=== PATIENT | male | born 1980 | race Caucasian/White ===

== ENCOUNTER 2016-09-28 14:49 | Emergency (ER) | payer OTHER ==
--- NOTE | 2016-09-28 15:51 | EDM.PDOC ---
ED HPI GENERAL MEDICAL PROBLEM - General Chief Complaint: Laceration Stated Complaint: CUT FINGER Time Seen by Provider: 09/28/16 15:10 Source of Information: Reports: Patient History Limitations: Reports: No Limitations - History of Present Illness INITIAL COMMENTS - FREE TEXT/NARRATIVE: Patient presents to the ED with complaints of an amputated finger. He was working on his [place] the [place] when he accidentally started the motor which caught his right index finger in the gears. He does not know his last tetanus. The finger is completely amputated at the distal tuft. Most oh his nail has also been removed. He has no other complaints. He did apply pressure and believes the rest of his finger tip is in the [place]. He does not have it with him. Onset: Today Onset Time: 14:30 Location: Reports: Upper Extremity, Right Quality: Reports: Ache, Sharp, Throbbing Severity: Moderate Improves with: Reports: Cold Therapy Worsens with: Reports: Movement Associated Symptoms: Reports: No Other Symptoms - Related Data Allergies Allergy/AdvReac Type Severity Reaction Status Date / Time No Known Allergies Allergy Verified 09/28/16 15:28 Home Meds: Home Meds . [No Known Home Meds] 09/28/16 [History] ED ROS GENERAL - Review of Systems Review Of Systems: ROS reveals no pertinent complaints other than HPI. ED EXAM, SKIN/RASH Exam: See Below Exam Limited By: No Limitations General Appearance: Alert, WD/WN, No Apparent Distress Eye Exam: Bilateral Eye: EOMI Neurological: Alert, Oriented, CN II-XII Intact, Normal Cognition, Normal Gait Psychiatric: Normal Affect, Normal Mood Skin: Wound/Incision (right distal index finger is completely amputated involving the nail and distal tuft) Lymphatic: No Adenopathy Course - Re-Assessments/Exams Free Text/Narrative Re-Assessment/Exam: 09/28/16 16:57 x-ray reviewed - comminuted fracture and partial amputation of the terminal tuft distal second phalanx. Dr. Vargas was consulted at [facility] who recommended hand specialist follow up next week. He did also suggest removal of his comminuted tuft if possible. I did attempt, but the bone was well attached to tissue and I will leave for hand specialist to revise during surgery. Departure - Departure Time of Disposition: 16:52 Disposition: Home, Self-Care 01 Condition: Good Clinical Impression: Amputation of finger, right - Discharge Information Instructions: Laceration Care, Adult, [id number], Pain Medicine Instructions , [id number], Nail Bed Injury, [id number], Wound Infection, [id number] Forms: ED Department Discharge Additional Instructions: I did visit with Dr. Vargas at [facility]. He is a locum provider in orthopedics. He did suggest wet to dry dressing changes, wound follow up on Saturday with visit to a hand specialist next week. I did start you on an antibiotic per his suggestion due to the dirty nature of the wound. I also gave you medication for your pain. Please keep that finger out of water, place it in a bag while showering to keep it dry. Do not soak or submerge your finger in any water. Please call with any questions or concerns. - Problem List & Annotations (1) Amputation of finger, right SNOMED Code(s): 91659560, [id number] Code(s): S68.119A - COMPLETE TRAUMATIC MCP AMPUTATION OF UNSP FINGER, INIT Status: Acute Priority: Low Current Visit: Yes Qualifiers: Encounter type: initial encounter Qualified Code(s): S68.119A - Complete traumatic metacarpophalangeal amputation of unspecified finger, initial encounter - Problem List Review Problem List Initiated/Reviewed/Updated: Yes - Assessment/Plan Assessment:: amputation of right distal index finger Plan: I did visit with Dr. Vargas at [facility]. He is a locum provider in orthopedics. He did suggest wet to dry dressing changes, wound follow up on Saturday with visit to a hand specialist next week. I did start you on an antibiotic per his suggestion due to the dirty nature of the wound. I also gave you medication for your pain. Please keep that finger out of water, place it in a bag while showering to keep it dry. Do not soak or submerge your finger in any water. Please call with any questions or concerns.
[2016-09-28 15:54] VITALS: BP 129/83
[2016-09-28] MEDS ORDERED: Diphtheria,Pertussis(Acell),Tetanus Vaccine 0.5 ML Syringe IM ONE (15:56)
[2016-09-28] MEDS ORDERED: Acetaminophen/HYDROcodone 325-10 MG Tab PO ONE (16:29)
== END 2016-09-28 17:10 | disposition home or self-care (01) ==
LOC: VM.ED 14:49
DX: S68.110A Complete traumatic metacarpophalangeal amputation of right index finger, initial encounter (principal); Z23 Encounter for immunization; W31.89XA Contact with other specified machinery, initial encounter; Y93.19 Activity, other involving water and watercraft; Y92.89 Other specified places as the place of occurrence of the external cause
CPT/HCPCS: 73140; 90715; 99283; A9270